=== PATIENT | female | born 1985 | race Caucasian/White ===

== ENCOUNTER 2017-04-27 21:34 | Emergency (ER) | payer SELFPAY ==
[2017-04-27 21:44] VITALS: O2SAT 96
[2017-04-27] MEDS ORDERED: ACETAMINOPHEN 325 MG TAB PO ONE (22:45)
--- NOTE | 2017-04-27 22:45 | EDPHY ---
H & P Time Seen by Provider: 04/27/17 22:06 HPI/ROS: CHIEF COMPLAINT: Head injury HISTORY OF PRESENT ILLNESS: 32-year-old female presents with a headache after head injury. Last night, after drinking alcohol, she was walking up stairs, tripped and struck her head on the railing of the stairs. She did not follow the ground or hurt herself otherwise. Today, she awoke with a persistent headache, rated 8/10. Aleve with some relief. No confusion, vomiting or loss of consciousness. REVIEW OF SYSTEMS: Constitutional: No weakness Eyes: No visual changes or eye pain ENT: No dental trauma Neck:No pain or injury Respiratory: No shortness of breath Cardiac: No chest pain Gastrointestinal: No abdominal pain, no vomiting Back:No pain or injury Genitourinary: No hematuria Musculoskeletal: No joint pain Skin: No lacerations Neurological: no dizziness Past Medical/Surgical History: Denies Social History: Smoking Status: Never smoked Physical Exam: General Appearance: Alert, pleasant and smiling Head: swelling and tenderness on the left side of the occiput Eyes: No conjunctival erythema, PERRLA, EOMI ENT, Mouth: No hemotympanum, no oral trauma, no bony tenderness Neck: Nontender, range of motion without pain Respiratory: No chest wall tenderness, lungs clear bilaterally Cardiovascular: Regular rate and rhythm Abdomen: Abdomen is soft and nontender Skin: No lacerations, no abrasions Back: No midline T/L/S tenderness Extremities: Pelvis is stable and nontender; no extremity tenderness or deformity, full range of motion without pain Neurological: A&Ox3, normal motor function, normal sensory exam, cranial nerves intact, normal gait Psychiatric: Mood and affect normal Constitutional: Initial Vital Signs Temperature (C) 36.8 C 04/27/17 21:40 Heart Rate 96 04/27/17 21:40 Respiratory Rate 18 04/27/17 21:40 Blood Pressure 180/112 H 04/27/17 21:40 O2 Sat (%) 96 04/27/17 21:40 O2 Delivery Mode Room Air Allergies/Adverse Reactions: No Known Allergies Allergy (Unverified 04/27/17 21:45) Home Medications: Medication Instructions Recorded Aleve 04/27/17 Medical Decision Making ED Course/Re-evaluation: This patient presents after minor head injury with a headache and a normal neurologic exam. CT imaging is not indicated per the [place] CT head rule. This was a minor mechanism of the injury. She has a normal GCS and no vomiting. Differential Diagnosis: Differential diagnosis includes though it is not limited to fracture, intracranial hemorrhage, pneumothorax, hemothorax, intra-abdominal hemorrhage. Departure - Departure Disposition: Home, Routine, Self-Care Clinical Impression: Headache Qualifiers: Headache type: post-traumatic Headache chronicity pattern: acute headache Intractability: not intractable Qualified Code(s): G44.319 - Acute post- traumatic headache, not intractable Head injury Qualifiers: Encounter type: initial encounter Qualified Code(s): S09.90XA - Unspecified injury of head, initial encounter Condition: Good Instructions: Head Injury (ED) Additional Instructions: Ibuprofen 600 mg 3-4 times daily while the pain persists. He may also take Tylenol 650 mg every 4 hours as needed for headache. Referrals: Catherine Mueller MD [Primary Care Provider] - As per Instructions
[2017-04-27 23:16] VITALS: BP 112/64; PULSE 66; RESP 16; TEMP 97.9
== END 2017-04-27 23:16 | disposition home or self-care (01) ==
DX: S09.90XA Unspecified injury of head, initial encounter (principal); W01.198A Fall on same level from slipping, tripping and stumbling with subsequent striking against other object, initial encounter; Y99.8 Other external cause status; Y93.01 Activity, walking, marching and hiking

== ENCOUNTER 2018-08-05 23:41 | Emergency (ER) | payer OTHER ==
--- NOTE | 2018-08-06 00:19 | EDPHY ---
H & P Stated Complaint: cyst to l eyelid Time Seen by Provider: 08/05/18 23:52 HPI/ROS: Chief Complaint: Swelling above left eye HPI: 33-year-old woman presenting with swelling above her left eye for the last week. She has been applying [id number] stye medication and warm compresses without any relief. She has not seen a primary care physician. No trauma. No vision changes. No headaches. No fevers or chills. ROS: 10 systems were reviewed and were negative except those elements noted in the HPI. PMH: Denies Social History: No smoking Family History: non-contributory Physical Exam: General: Awake, alert, no acute distress HEENT: There is a 1.5 x 1 cm fluctuant mass above her left eyelid just over the orbital ridge. There is no surrounding erythema. Is mildly tender to the touch. Skin: No rash - Personal History LMP (Females 10-55): IUD In Place Current Tetanus/Diphtheria Vaccine: Yes Current Tetanus Diphtheria and Acellular Pertussis (TDAP): Yes - Medical/Surgical History Hx Asthma: No Hx Chronic Respiratory Disease: No Hx Diabetes: No Hx Cardiac Disease: No Hx Renal Disease: No Hx Cirrhosis: No Hx Alcoholism: No Hx HIV/AIDS: No Hx Splenectomy or Spleen Trauma: No Other PMH: none - Social History Smoking Status: Never smoked Constitutional: Initial Vital Signs Temperature (C) 36.8 C 08/05/18 23:44 Heart Rate 100 08/05/18 23:44 Respiratory Rate 18 08/05/18 23:44 O2 Sat (%) 97 08/05/18 23:44 O2 Delivery Mode Room Air Allergies/Adverse Reactions: No Known Allergies Allergy (Unverified 04/27/17 21:45) Home Medications: Medication Instructions Recorded Aleve 04/27/17 Medical Decision Making Procedures: Procedure: Abscess drainage. The patient's abscess was located on the left eyebrow. I obtained verbal consent from the patient to drain the abscess who was informed about the possibility of bleeding and pain. The abscess was incised with 11 blade and a moderate amount of purulent drainage was expressed. I irrigated the wound and placed some packing. The patient tolerated the procedure well. The procedure was performed by myself. Departure - Departure Disposition: Home, Routine, Self-Care Clinical Impression: Abscess Condition: Good Instructions: Abscess (ED) Additional Instructions: Leave the packing in place for the next 2 days. Follow up at [facility] in 2 days to have the packing removed. Return to the emergency department for increasing swelling, increasing redness, worsening pain, fevers or chills, or any other concerns. Referrals: Catherine Mueller MD [Primary Care Provider] - As per Instructions
[2018-08-06 00:28] VITALS: BP 182/111
== END 2018-08-06 00:27 | disposition home or self-care (01) ==
PROC: 089PXZZ Drainage of Left Upper Eyelid, External Approach (ICD-10-PCS; principal; 2018-08-05)
DX: H00.034 Abscess of left upper eyelid (principal)